=== PATIENT | female | born 1955 | race Caucasian/White ===

== ENCOUNTER → 2023-10-09 06:28 | Day surgery (SDC) | payer MEDICARE, SELFPAY | LOC: GI 06:28 | PROVIDERS: ATTENDING PHYSICIAN Internal Medicine Gastroenterology | DX: Z12.11 Encounter for screening for malignant neoplasm of colon (principal); D12.3 Benign neoplasm of transverse colon; K63.5 Polyp of colon; K57.30 Diverticulosis of large intestine without perforation or abscess without bleeding; K64.0 First degree hemorrhoids; K29.50 Unspecified chronic gastritis without bleeding; K22.6 Gastro-esophageal laceration-hemorrhage syndrome; K31.89 Other diseases of stomach and duodenum; R10.84 Generalized abdominal pain; R63.4 Abnormal weight loss; K56.2 Volvulus; Z86.010 Personal history of colon polyps | CPT/HCPCS: 45380; 43239; 88305; 88341; 88342 ==

== ENCOUNTER → 2023-10-18 12:38 | Outpatient (REF) | payer MEDICARE, SELFPAY | LOC: RAD 12:38 | PROVIDERS: ATTENDING PHYSICIAN Internal Medicine Gastroenterology | DX: K76.89 Other specified diseases of liver (principal); R63.4 Abnormal weight loss; R10.84 Generalized abdominal pain | CPT/HCPCS: 74177; Q9967 ==

== ENCOUNTER → 2023-12-30 06:23 | Day surgery (SDC) | payer MEDICARE, SELFPAY | LOC: GI 06:23 | PROVIDERS: ATTENDING PHYSICIAN Internal Medicine Gastroenterology | DX: K20.90 Esophagitis, unspecified without bleeding (principal); R63.4 Abnormal weight loss; R10.84 Generalized abdominal pain; K59.00 Constipation, unspecified; R14.1 Gas pain; Z86.010 Personal history of colon polyps; Z87.19 Personal history of other diseases of the digestive system | CPT/HCPCS: 43235 ==